=== PATIENT | female | born 1985 | race Asian ===

== ENCOUNTER 2018-10-26 14:03 | Observation (INO) | payer OTHER ==
[~2018-10-26] VITALS: Ht 157.5 cm; Wt 63.5 kg
== END 2018-10-26 15:30 | disposition home or self-care (01) ==
LOC: SPU 14:03
PROVIDERS: ADMIT Specialist; ATTEND Specialist
DX: Z04.3 Encounter for examination and observation following other accident (principal); Z3A.32 32 weeks gestation of pregnancy
CPT/HCPCS: 81002; G0378